=== PATIENT | female | born 1975 | race Caucasian/White ===

== ENCOUNTER 2016-11-28 08:15 | Emergency (ER) | payer SELFPAY ==
[~2016-11-28] VITALS: Ht 162.6 cm; Wt 67.3 kg
[2016-11-28 08:24] VITALS: TEMP 36.8; Ht 162.6 cm; Wt 67.3 kg
[2016-11-28] MEDS ORDERED: SULF800T23 PO (08:33)
[2016-11-28] MEDS ORDERED: ONDANSETRON INJ 2 MG/ML 2 ML VIAL IV STA (10:04)
[2016-11-28] MEDS ORDERED: SODIUM CHLORIDE 0.9% 1000ML 1,000 ML IV STA (10:04)
[2016-11-28 10:25] LABS: BASO % 0.2 %; BASO ABS # 0.02 K/uL (0-0.2); COMPLETE YES; EOS % 0.2 %; HEMATOCRIT 43.4 % (37-47); IG% 0.2 %; LYMPH % 15.6 %; LYMPH ABS # 1.99 K/uL (1.2-3.4); MEAN CELL VOLUME 92.3 fL (80-100); MEAN CORPUSCULAR HEMOGLOBIN 30.4 pg (25-34); MEAN CORPUSCULAR HGB CONC 32.9 g/dl (32-36); MEAN PLATELET VOLUME 9.4 fL (7.4-10.4); MONO % 8.8 %; PLATELET COUNT 318 K/uL (130-400); WHITE BLOOD COUNT 12.74 K/uL (4.8-10.8)
[2016-11-28 10:26] LABS: URINE APPEARANCE CLEAR (CLEAR); URINE BILIRUBIN NEG (NEG); URINE COLOR YELLOW; URINE NITRITE NEG (NEG); URINE SPECIFIC GRAVITY 1.017 (1.000-1.030); UROBILINOGEN NEG (NEG)
[2016-11-28 10:29] LABS: MANUAL MICROSCOPIC REQUIRED? YES; REVIEW REQ? NO
[2016-11-28 10:33] LABS: ALT/SGPT 22 U/L (12-78); AST/SGOT 10 U/L (15-37); BLOOD UREA NITROGEN 11 mg/dl (7-18); BUN/CREATININE RATIO 11.2 (10-20); CALCIUM 9.6 mg/dl (8.5-10.1); CARBON DIOXIDE 26 mmol/L (21-32); CHLORIDE 107 mmol/L (98-107); GLUCOSE 112 mg/dl (70-99); POTASSIUM 3.7 mmol/L (3.5-5.1); SODIUM 140 mmol/L (136-145)
[2016-11-28 10:36] LABS: ALKALINE PHOSPHATASE 69 U/L (45-117)
[2016-11-28 10:41] LABS: URINE BACTERIA 1+ (NEG); URINE RBC 0-4 /hpf (0-4)
--- NOTE | 2016-11-28 10:53 | DIAGNOSTIC IMAGING REPORT ---
PA CHEST RADIOGRAPH AND UPRIGHT AND SUPINE AP RADIOGRAPHS OF THE ABDOMEN CLINICAL HISTORY: Abdominal pain. COMPARISON STUDY: No previous studies for comparison. FINDINGS: Lung volumes are normal. No consolidation is identified. There is no pneumothorax or pleural effusion. Cardiomediastinal silhouette is normal. There is no free air. The bowel gas pattern is normal. Pelvic calcifications statistically reflect phleboliths. IMPRESSION: 1. No free air or evidence of bowel obstruction. 2. No acute cardiopulmonary findings. Electronically signed by: Otoniel Abraham M.D. 11/28/2016 10:51 AM Dictated Date/Time: 11/28/2016 10:45 AM
[2016-11-28] MEDS ORDERED: ONDA4TAB46 PO (11:27)
[2016-11-28 11:38] VITALS: BP 119/71; PULSE 95; O2SAT 97
--- NOTE | 2016-11-28 17:18 | EMERGENCY ROOM VISIT NOTE ---
ED Visit Note First contact with patient: 08:24 Chief Complaint: I feel dehydrated. History of Present Illness: Ms. Oneil is a 41-year-old female who ambulates into the ED accompanied by her with complaints of possible dehydration. Patient reports she has not been feeling well for over a month. When asked her to specify she reports she has not had much of an appetite and has had generalized fatigue. She reports she's lost 15-20 pounds in the last month. Acutely on Sunday, 3 days ago she reports she became nauseated and started having multiple episodes of vomiting. She was seen at the [facility] and diagnosed with the urinary tract infection and was prescribed Bactrim. She reports prior to this diagnoses she really was not experiencing any urinary symptoms. Since pain on the Bactrim she reports she is feeling better but is still having generalized fatigue. Associated with the fatigue patient reports when she got up from sleep today she noticed a red indira rash on her chest and face and felt like it was sunburn but was not experiencing any pain. Patient has not identified any aggravating or alleviating factors related to the symptoms. She has not taken any specific medications for her symptoms except for her antibiotics. Her rash has resolved. In addition to the rash she does report she has mild lightheadedness but no dizziness. She denies fevers, chills, sweats, headache, head trauma, visual changes, hearing changes, difficult speaking, difficulty swallowing, difficulty walking/ coordinating body movements, neck and back pain, chest pain, shortness of breath , abdominal pain, hematuria, increased urinary frequency, urinary urge, diarrhea , constipation, rectal bleeding, black/tarry stools, vaginal bleeding, vaginal discharge, extremity weakness/numbness/tingling, joint pains. Review of Systems: As noted above in history of present illness. All body systems were reviewed and found to be negative as noted above. Past Medical History: As previously noted and status post section. Current Medications: As previously noted. Allergies to Medications: Patient denies. Social History: Patient is not employed; she feels safe in her home environment ; she denies tobacco and alcohol use. Physical Examination: Vital Signs: Date Time Temp Pulse Resp B/P (MAP) Pulse Ox O2 Delivery O2 Flow Rate FiO2 11/28/16 11:38 95 18 119/71 97 11/28/16 10:19 93 16 118/78 94 11/28/16 09:15 92 18 109/59 95 Room Air 11/28/16 08:24 36.8 101 16 127/82 96 Room Air GENERAL: 41-year-old female in mild distress due to symptoms, nontoxic-appearing , afebrile and hemodynamically stable. NEUROLOGICAL: Awake, alert and oriented to person, place and time. Answering questions appropriately and following commands. Normal gait. Good hand eye coordination. SKIN: Warm, dry and pink. No soft tissue eruptions or trauma noted. HEENT: Atraumatic and normocephalic. PERRLA. Sclera white and conjunctiva pink. No drainage from naris. Oral cavity moist and pink. Pharynx is nonerythematous or edematous. Speech normal. No lymphadenopathy. Trachea midline. No jugular venous distention. BACK: No tenderness over the bony spine. No CVA tenderness. THORAX: Lungs sounds are clear to auscultation and equal bilaterally with symmetrical chest wall. No wheezing, rales or rhonchi. No crepitus, tenderness , subcutaneous air or deformities noted. HEART: Regular rate and rhythm. No gallops, rubs or murmurs are appreciated. ABDOMEN: Flat, soft and nontender. Positive bowel sounds in all quadrants. No guarding, rigidity or organomegaly. EXTREMITIES: Moves all extremities well on command and with purpose. All distal neurovascular statuses are intact and equal bilaterally. No calf tenderness or cords. ED Course: Patient is assessed as noted above. Patient's medication list was reviewed. Laboratory Testing: Test 11/28/16 08:40 Range/Units White Blood Count 12.74 4.8-10.8 K/uL Red Blood Count 4.70 4.2-5.4 M/uL Hemoglobin 14.3 12.0-16.0 g/dL Hematocrit 43.4 37-47 % Mean Corpuscular Volume 92.3 80-100 fL Mean Corpuscular Hemoglobin 30.4 25-34 pg Mean Corpuscular Hemoglobin Concent 32.9 32-36 g/dl Platelet Count 318 130-400 K/uL Mean Platelet Volume 9.4 7.4-10.4 fL Neutrophils (%) (Auto) 75.0 % Lymphocytes (%) (Auto) 15.6 % Monocytes (%) (Auto) 8.8 % Eosinophils (%) (Auto) 0.2 % Basophils (%) (Auto) 0.2 % Neutrophils # (Auto) 9.55 1.4-6.5 K/uL Lymphocytes # (Auto) 1.99 1.2-3.4 K/uL Monocytes # (Auto) 1.12 0.11-0.59 K/uL Eosinophils # (Auto) 0.03 0-0.5 K/uL Basophils # (Auto) 0.02 0-0.2 K/uL RDW Standard Deviation 42.4 36.4-46.3 fL RDW Coefficient of Variation 12.5 11.5-14.5 % Immature Granulocyte % (Auto) 0.2 % Immature Granulocyte # (Auto) 0.03 0.00-0.02 K/uL Urine Color YELLOW Urine Appearance CLEAR CLEAR Urine pH 7.0 4.5-7.5 Urine Specific University 1.017 1.000-1.030 Urine Protein NEG NEG Urine Glucose (UA) NEG NEG Urine Ketones NEG NEG Urine Occult Blood NEG NEG Urine Nitrite NEG NEG Urine Bilirubin NEG NEG Urine Urobilinogen NEG NEG Urine Leukocyte Esterase TRACE NEG Urine WBC (Auto) 0-5 /hpf Urine RBC (Auto) 0-4 /hpf Urine Hyaline Casts (Auto) 0-5 /lpf Urine Epithelial Cells (Auto) 0-5 /lpf Urine Bacteria (Auto) NEG Urine RBC 0-4 0-4 /hpf Urine WBC 1-5 0-5 /hpf Urine Epithelial Cells >30 0-5 /lpf Urine Bacteria 1+ NEG Urine Hyaline Casts 1-5 0-5 /lpf Urine Test NEG NEG Sodium Level 140 136-145 mmol/L Potassium Level 3.7 3.5-5.1 mmol/L Chloride Level 107 98-107 mmol/L Carbon Dioxide Level 26 21-32 mmol/L Anion Gap 7.0 3-11 mmol/L Blood Urea Nitrogen 11 7-18 mg/dl Creatinine 1.00 0.60-1.20 mg/dl Est Creatinine Clear Calc Drug Dose 69.8 ml/min Estimated GFR () 81.0 Estimated GFR (Non- 69.9 BUN/Creatinine Ratio 11.2 10-20 Random Glucose 112 70-99 mg/dl Calcium Level 9.6 8.5-10.1 mg/dl Total Bilirubin 0.3 0.2-1 mg/dl Direct Bilirubin < 0.1 0-0.2 mg/dl Aspartate Amino Transf (AST/SGOT) 10 15-37 U/L Alanine Aminotransferase (ALT/SGPT) 22 12-78 U/L Alkaline Phosphatase 69 45-117 U/L Total Protein 7.7 6.4-8.2 gm/dl Albumin 3.7 3.4-5.0 gm/dl Lipase 162 73-393 U/L Acute Abdominal X-Ray Series: Were read by myself and the radiologist showing a normal PA chest with no signs of infiltrates, effusions or pneumothorax. Normal heart silhouette and bony anatomy. Abdominal component shows a normal bowel gas pattern without any free air or signs of obstruction. Patient was hydrated with normal saline and received 4 mg of Zofran IV. Patient was reassessed multiple times during her stay in the emergency department. Patient's case was reviewed with Dr. Duron; we agreed on diagnostic approach, treatment, disposition and plan. Patient was educated about today's findings and instructed on her treatment plan ; she verbalized understanding and agreement with this plan. Clinical Impression: Nausea and vomiting. Weight loss. Fatigue. Decision-Making: Initially my differential diagnosis I considered pyelonephritis , hepatitis, pancreatitis, bowel obstruction, ectopic , electrolyte abnormalities, neoplasm and other causes. Disposition: Patient discharged home in stable condition accompanied by her ; prior to departure she was reassessed and subjectively reported she was feeling the same. Plan: Patient was encouraged to continue her current medications as prescribed. Patient was prescribed 4 mg Zofran ODT every 6 hours as needed for nausea/ vomiting. Patient was encouraged to stay well-hydrated with increased clear fluids. Patient was encouraged use a bland diet for the next 48 hours and avoid stomach irritants. Patient was encouraged to contact her PCP for recheck and possible referral to gastroenterology for weight loss. Patient was encouraged return ED for worsening nausea/vomiting, fevers, bloody vomitus, abdominal pain, worsening weight loss or any new/concerning symptoms.
== END 2016-11-28 11:39 | disposition home or self-care (01) ==
LOC: C.EDB 08:17
DX: R11.2 Nausea with vomiting, unspecified (principal); R53.1 Weakness; R63.4 Abnormal weight loss